=== PATIENT | male | born 1950 | race Caucasian/White ===

== ENCOUNTER 2024-07-17 17:16 | Observation (INO) | payer MEDICARE, SELFPAY ==
--- NOTE | ~2024-07-17 | XR_ITS ---
EXAM: XR wrist LT min 3V DATE: 07/17/2024 18:39 HISTORY: left wrist pain, swelling/NO TRAUMA . COMPARISON: None available. FINDINGS: Decreased mineralization. No fracture or dislocation. No lytic or blastic lesion. Scattere d degenerative changes, severe at the radiocarpal articulation, with findings likely representing SLA C wrist. No erosion or periosteal change. Linear radiopaque foreign body in the soft tissues adjacent to the first interphalangeal joint. Marked soft tissue swelling about the wrist. IMPRESSION: No acute osseous finding the left wrist. 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 Marked wrist soft tissue swelling. Radiopaque foreign body adjacent t o the interphalangeal joint of the thumb. Reviewed, dictated and finalized at location K. IMPRESSION: No acute osseous finding the left wrist. Severe degenerative change s of the radial carpal joint and proximal carpal row. Marked wrist soft tissue swelling. Radiopaque foreign body adjacent to the interphalangeal joint of the thumb.
--- OUTSIDE RECORDS SUMMARY | 2024-07-17 17:57 | XMS_ITS | Continuity of Care Document ---
Author Organization [facility] Address [address] [place] [address] Phone Care Team Providers Care Sales Representative Supervisor Name Role Phone Zaheer SANTILLAN Oscar Unavailable Unavailable Allergies, Adverse Reactions, Alerts Substance Reaction Status Criticality No Known Allergies Active No Inform ation Medications Medication Instructions Dosage Effective Dates (start - stop) Status Comments metformin 500 mg tablet take 1 tablet by oral route 2 times every day with morning and evening meals 500 MG - Active atorvastatin 20 mg tablet take 1 tablet by oral route every day 20 MG - Active hydrochlorothiazide 25 mg tablet take 1 tablet by oral route every day 25 MG - Active losartan 50 mg tablet - Active AMLODIPINE BESYLATE (unknown strength) Not Available - Active bisoprolol-hydrochloroth iazide 10 mg-6.25 mg Tab - Active Procedures Procedure Date OFFICE/OUTPATIENT VISIT EST DRAIN/INJECT JOINT/BURSA Drugs unclassified injection Drugs unclassified injection Betamethasone acet&sod phosp DRAIN/INJECT JOINT/BURSA Betamethasone acet&sod phosp OFFICE/OUTPATIENT VISIT EST OFFICE/OUTPATIENT VISIT EST RADEX WRST COMPL MINIMUM 3 VIEWS 2021 Wrist Long and Short Splint Betamethasone acet&sod phosp Drugs unclassified injection DRAIN/INJECT JOINT/BURSA Betamethasone acet&sod phosp Drugs unclassified injection DRAIN/INJECT JOINT/BURSA OFFICE/OUTPATIENT VISIT NEW CHERELLE ACUÑA 3 VIEWS OFFICE/OUTPATIENT VISIT EST OFFICE/OUTPATIENT VISIT EST MU Reporting OFFICE/OUTPATIENT VISIT EST MU Reporting OFFICE/OUTPATIENT VISIT EST MU Reporting POSTOP FOLLOW-UP VISIT MU Reporting POSTOP FOLLOW-UP VISIT MU Reporting Advance Directives Directive Yes / No Effective Date File Name No Information Encounters Encounter Description Practice Location Reason(s) For Visit Diagnoses Date Provider Providers Copied on Encounter [facility], [address], [place], [address], tel:[phone] [facility] No Information 2 Zaheer Moore. [address], [place], [place], [id number]. tel:[phone] OFFICE/OUTPA TIENT VISIT EST [facility], [address], [place], [address], [place] tel:[phone] [facility] Osteoarthritis of both wrists, unspecified osteoarthritis type 2 Zaheer Moore. [address], [place], [place], [address]. tel:[phone] Referring Provider: Guero Marvin, [address] [place] [address], [address]. tel:[phone] OFFICE/OUTPA TIENT VISIT EST [facility], [address], [place], [address], [place] tel:[phone] [facility] Osteoarthritis of both wrists, unspecified osteoarthritis type 2 Zaheer Moore. [address], [place], [place], [id number]. tel:[phone] Referring Provider: Guero Marvin, [address] [place] [address], [address]. tel:[phone] OFFICE/OUTPA TIENT VISIT EST [facility], [address], [place], [address], [place] tel:[phone] [facility] Osteoarthritis of both wrists, unspecified osteoarthritis type 2 Zaheer Moore. [address] [address], [place], [place], [address]. tel:[phone] Referring Provider: Guero Marvin, [address] [place] [address], [address]. tel:[phone] OFFICE/OUTPA TIENT VISIT NEW [facility], [address] [facility] [address], [place], [address], [place] tel:[phone] [facility] Pain in right wristBody mass index [BMI] 27.0-27.9, adultOsteoarth ritis of both wrists, unspecified osteoarthritis type Jun- 2 Zaheer Moore. [address] [facility] [address], [place], [place], [address]. tel:[phone] Referring Provider: Guero Marvin, [address] [place] [address], [address]. tel:[phone] OFFICE/OUTPA TIENT VISIT EST [facility], [address] [address], [place], [address], [place] tel:[phone] [facility] Left anterior knee painStrain of right quadriceps, initial encounterBody mass index (BMI) 30.0-30.9, adult Apr- 2 6 Krmichaelhauser Saul. [address] [facility], [place], [place], [id number]. tel:[phone] OFFICE/OUTPA TIENT VISIT EST [facility], [address] [address], [place], [address], [place] tel:[phone] [facility] Knee joint replacement 0 4 Krmaryangshauser Saul. [address] [facility], [place], [place], [address]. tel:[phone] Referring Provider: Guero Marvin, [address] [place] [address], [address]. tel:[phone] OFFICE/OUTPA TIENT VISIT EST [facility], [address] [facility], [place], [address], [place] tel:[phone] [facility] Knee joint replacement 3 Zachary Hughes. [address] [address] [facility], [place], [place], [id number]. tel:[phone] Referring Provider: Guero Marvin, [address] [place] [address], [address]. tel:[phone] OFFICE/OUTPA TIENT VISIT EST [facility], [address] [facility] [address] [place] [address], [address], [place] tel:[phone] [facility] Knee joint replacement 3 Zachary Hughes. [address] [place], [place], [id number]. tel:[phone] Referring Provider: Guero Marvin, [address] [place] [address], [address]. tel:[phone] [facility], [address] [address] [facility] [address] [place] [address], [address], [place] tel:[phone] [facility] Knee joint replacement 2 Zachary Hughes. [address] [place], [place], [address]. tel:[phone] Referring Provider: Guero Marvin, [address] [place] [address], [address]. tel:[phone] [facility], [address], [address], [place] tel:[phone] [facility] replacement 2 Boxdorfer Jemma. [address] [facility] [address] [place] [address], [id number]. tel:[phone] Referring Provider: Guero Marvin, [address] [place] [address], [address]. tel:[phone] [facility], [address], [address], [place] tel:[phone] [facility] Osteoarthrosis , unspecified whether generalized or localized, involving lower leg Sep-1 0-201 2 Zachary Hughes. [address] , [place], [place], [address]. tel:[phone] Referring Provider: Guero Marvin, [address] [place] [address], [address]. tel:[phone] [facility], [address] [facility], [place], [address], tel:[phone] [facility] Osteoarthrosis , unspecified whether generalized or localized, involving lower leg Alphonse-2 8201 2 Zachary Hughes. [address] , [place], [place], [address]. tel:[phone] Referring Provider: Guero Marvin, [address] [place] [address], [address]. tel:[phone] Family History Family Member Type Diagnosis Age At Onset Father Problem (finding) Heart disease Mother Problem (finding) Arthritis Immunizations Vaccine Date Status Comments Pneumo (2 yrs or older)(PPV) administered Source: Other Provider Payers Payer name Insurance type Covered green party ID Authoriza tion(s) Medicare E2 OT [id number] [employer] OT [id number] Social History Type Description Quantity Date Captured Comments Alcohol Use Details Unknown Caffeine Use Details Unknown Tobacco Use Status No Information Smoking Status No Information Sex Male Chief Complaint And Reason For Visit No Information Reason For Referral Reason For Referral No Information Plan Of Treatment Date Type Action Status Referral Ordered: RADEX WRST COMPL MINIMUM 3 VIEWS RT wrist ordered Referral Ordered: RADEX KNE 3 VIEWS LT ordered Referral Ordered: RADEX KNE 3 VIEWS RT ordered Referral Ordered: RADEX KNE 3 VIEWS Bilateral ordered History Of Present Illness Encounter Date Complaint History Of Prese nt Illness No Information Functional Status Date Functional Assessmen t No Information Instructions Date Instruction Additional Infor mation Giving encouragement to exercise Related to Body mass index [BMI] 27.0-27.9, adult Giving encouragement to exercise Related to Body mass index (BMI) 30.0-30.9, adult Home exercise program. Related t o Knee joint replacement Weight bearing status as tom collins Related to Knee joint replacement Reviewed medications Activity as tolerated Activity as tolerated Assessments Type Assessment Date No Information Patient Care Teams Name Effective Dates (start - stop) Status Members No Information
--- OUTSIDE RECORDS SUMMARY | 2024-07-17 17:57 | XMS_ITS | Clinical Summary ---
Author Organization [facility] Address [address] [place] [address] Phone Care Team Providers Care Dial Screw Assembler Name Role Phone Unavailable Primary Care Provider Unavailabl e Allergies No known active allergies Medications metFORMIN (GLUCOPHAGE) 500 mg tablet Take 500 mg by mouth 2 times daily. 6 12/15/2018 Active amLODIPine (NORVASC) 2.5 mg tablet Take 1 Tablet (2.5 mg) by mouth daily. 30 Tablet 03/06/2019 Active aspirin (ECOTRIN EC) 81 mg Tablet, Delayed Release (E.C.) Take 1 Tablet (81 mg) by mouth daily. 30 Tablet 1 03/14/2019 Active atorvastatin (LIPITOR) 10 mg tablet Take 1 Tablet (10 mg) by mouth daily with supper. 30 Tablet 1 03/06/2019 Active oxyCODONE-aceta minophen (PERCOCET) 5-325 mg tabletIndicatio ns:Wrist arthritis Take 1 Tablet by mouth every 4 hours as needed for Pain. Max Daily Amount: 6 Tablets 12 Tablet 06/20/2021 8:14 AM CDT 06/20/2021 Active Active Problems Problem Noted Date Diagnosed Date Right sided weakness 03/05/2019 Slurred speech 03/05/2019 Type 2 diabetes mellitus, wi thout long-term current use of insulin 03/05/2019 Benign essential HTN 03/05/2019 Immunizations Immunization Administration Dates Next Due (ADACEL/BOOSTRIX)(10 YR UP) TDAP VACCINE, 0.5ML, IM 06/20/2021 Family History Medical History Relation Name Comments Heart Disease Father Healthy Mother Relation Name Status Comments Father Mother Alive Social History Tobacco Use Types Packs/Day Years Used Date Smoking Tobacco: Former Cigarettes 2 20 1 05/06/1958 - 03/05/1979 Smokeless Tobacco: Never Alcohol Use Standard Drinks/Week Comments Yes 0 (1 standard drink = 0.6 oz pur e alcohol) Sex and Gender Information Value Date Recorded Sex Assigned at Not on file Legal Sex Male 10:38 PM CDT Gender Identity Not on file Sexual Orientation Not on file Last Filed Vital Signs Vital Sign Reading Time Taken Comments Blood Pressure 148/51 06/20/2021 5:40 AM CDT Pulse 58 06/20/2021 5:40 AM CDT Temperature 36.8 C (98.3 F) 06/20/2021 4:40 AM CDT Respiratory Rate 13 06/20/2021 5:40 AM CDT Oxygen Saturation 92% 06/20/2021 5:40 AM CDT Inhaled Oxygen Concentration - - Weight 81.6 kg (180 lb) 06/20/2021 4:40 AM CDT Height 170.2 cm (5' 7 ) 06/20/2021 4:40 AM CDT Body Mass Index 28.19 06/20/2021 4:40 AM CDT Plan of Treatment Health Maintenance Due Date Last Done Comments DIABETES ANNUAL FOOT EXAM 01/02/1968 DIABETES MICROALBUMIN ANNUAL SCREEN 01/02/1968 COLORECTAL SCREENING 1995 Colorectal Cancer Screening 1995 FIT-DNA Q 3 years 1995 FIT/FOBT Q 1 year 1995 Flex Sig/CT Colonography Q 5 years 1995 RSV VACCINE (60+ or ) (1 - Risk 60-74 years 1-dose series) 2010 ZOSTER VACCINE (2 of 3) 02/12/2015 12/18/2014, 12/17 LDL CHOLESTEROL ANNUAL 03/05/2020 03/05/2019 INFLUENZA VACCINE (#1) 2023 3, 01/14/2022, 11/28/2021, Additional history exists COVID-19 Vaccine (3 - 2023-2 5 season) 2023 06/21/2020, 05/31/2020 DIABETES ANNUAL RETINAL EXAM 06/21/2024 06/22/2023 DIABETES HBA1C Q 6 MONTHS 12/14/20242024, 12/14/2023, 06/12/2023, Additional history exists DTAP/TDAP/TD VACCINES (3 - T d or Tdap) 06/21/2031 06/20/2021, 04/15/2017 PNEUMOCOCCAL VACCINE 50+ YEARS Completed 04/22/2019 , 12/15/2016 Procedures Procedure Name Priority Date/Time Associated Diagnosis Comments LIPID PANEL Routine 03/05/2019 5:49 AM CUSTOMS MANAGER HEMOGLOBIN A1C Stat 03/05/2019 5:49 AM CUSTOMS MANAGER from Last 3 Months or Most Recently Relevant to Health Maintenance Results * HEMOGLOBIN A1C (03/05/2019 5:49 AM CUSTOMS MANAGER) HEMOGLOBIN A1C 5.6 <=5.6 % 03/05/2019 9:26 AM [facility] [place] [employer] [facility] EST. AVG GLUCOSE, A1C 114 mg/dL 03/05/2019 9:26 AM [facility] [place] [employer] [facility] Blood Venipuncture / Unknown 03/05/2019 5:49 AM CUSTOMS MANAGER 03/05/2019 6:24 AM CUSTOMS MANAGER Narrative [facility] [place] [employer] [facility] - 03/05/2019 9:26 AM CUSTOMS MANAGER HGB A1C INTERPRETATION NORMAL: <5.7% PRE-DIABETES: 5.7 - 6.4% DIABETES: 6.5% OR GREATER Vaibhav MEDINA CHEMISTRY ORDERABLES Final Result [facility] CLIA# [id number] [place] [address] * (ABNORMAL) LIPID PANEL (03/05/2019 5:49 AM CUSTOMS MANAGER) CHOLESTEROL 160 <200 mg/dL 03/05/2019 10:43 PM [facility] [place] [employer] [facility] TRIGLYCERIDE 149 <150 mg/dL 03/05/2019 10:43 PM [facility] [place] [employer] [facility] HDL 42(L) >57 mg/dL 03/05/2019 10:43 PM [facility] [place] [employer] [facility] LDL CALCULATED 88 <100 mg/dL 03/05/2019 10:43 PM CUSTOMS MANAGER [facility] [place] [employer] [facility] NON-HDL CHOLESTEROL 118 <130 mg/dL 03/05/2019 10:43 PM CUSTOMS MANAGER [facility] Blood Venipuncture / Unknown 03/05/2019 5:49 AM CUSTOMS MANAGER 03/05/2019 6:05 AM CUSTOMS MANAGER Narrative [facility] - 03/05/2019 10:43 PM CUSTOMS MANAGER TOTAL CHOLESTEROL mg/dL Desirable <200 Borderline high 200-239 High >=240 TRIGLYCERIDES mg/dL Normal <150 Borderline high 150-199 High 200-499 Very high >=500 HDL CHOLESTEROL mg/dL Low <40 Normal 40-59 Desirable >=60 NON HDL CHOLESTEROL mg/dL Optimal <130 Near Optimal 130-159 Borderline High 160-189 Very High >=190 Calculated LDL mg/dL Optimal <100 Near Optimal 100-129 Borderline High 130-159 High 160-189 Very High >=190 ATPIII Guidelines Reference Ranges for Lipid Panels (NCEP/AMA) Vaibhav MEDINA CHEMISTRY ORDERABLES Final Result [facility] [place] [employer] [facility] CLIA# [id number] [place] [address] from Last 3 Months or Most Recently Relevant to Health Maintenance Insurance MEDICARE PART A AND B RX [facility] Medicare Part D Advance Directives For more information, please contact: [phone] * Full Code (Latest Code Status on File) Date Activated Date Inactivated Comments 03/05/2019 8:36 AM 03/06/2019 5:50 PM
--- OUTSIDE RECORDS SUMMARY | 2024-07-17 17:57 | XMS_ITS | Clinical Summary ---
Author Organization [facility] Address [address] [place] [address] Care Team Providers Care Refinery Operator Name Role Phone Unavailable Primary Care Provider Unavailabl e Social History Tobacco Use Types Packs/Day Years Used Date Smoking Tobacco: Never Assessed Sex and Gender Information Value Date Recorded Sex Assigned at Not on file Legal Sex Male 7:06 PM CDT Gender Identity Not on file Sexual Orientation Not on file Plan of Treatment Health Maintenance Due Date Last Done Comments Colorectal Cancer Screening Colonoscopy (10 Years) 1950 Hepatitis C 01/02/1968 DTaP, Tdap and Td Vaccines ( 1 - Tdap) 1969 Pneumococcal Vaccine: 50+ Ye ars (1 of 1 - PCV) 01/02/2000 Zoster Vaccines (1 of 2) 01/02/2000 COVID-19 Vaccine ( - 2023-2 5 season) 2023 RSV Immunization or 60+ Years (1 - 1-dose 75+ series) 2025 Meningococcal B Vaccine Aged Out No l onger eligible based on patient's age to complete this topic Meningococcal Vaccine Aged Out No benjie carmen eligible based on patient's age to complete this topic RSV Immunizations Under 20 Months Aged Out No longer eligible based on patient's age to complete this topic
--- OUTSIDE RECORDS SUMMARY | 2024-07-17 17:57 | XMS_ITS | Continuity of Care Document ---
Author Organization [facility] Address [address] [place] [address] Phone Care Team Providers Care Senior Linux Unix Administrator Name Role Phone Trudy Lewis Unavailable Unavailable Allergies, Adverse Reactions, Alerts Substance Reaction Status Criticality No Known Allergies Active No Inform ation Medications Medication Instructions Dosage Effective Dates (start - stop) Status Comments amoxicillin 500 mg tablet take 4 tablets by oral route 2 hours prior to all dental visits - Active oxycodone-acetaminophen 5 mg-325 mg tablet take 1-2 tablet by oral route every 4 hours as needed for postop pain control - Active meloxicam 15 mg tablet take 1 tablet by oral route every day 15 MG - Active ondansetron 4 mg disintegrating tablet take 1 tablet by oral route every 6 hours as needed for post op nausea control, place on tongue, let dissolve, then swallow - Active Aspirin Low Dose 81 mg tablet,delayed release take 1 tablet by oral route every day 81 MG - Active atorvastatin 10 mg tablet take 1 tablet by oral route every day 10 MG - Active hydrochlorothiazide 12.5 mg capsule take 1 capsule by oral route every day 12.5 MG - Active multivitamin capsule - Active Cinnamon 500 mg capsule - Active metformin 500 mg tablet take 1 tablet by oral route 2 times every day with morning and evening meals 500 MG - Active amlodipine 2.5 mg tablet - Activ e Procedures Procedure Date BMI Documented Above Normal Limit F/U Pl an Doc Asp/inject intermed joint/bursa w/o US g uidance Office/outpatient visit,new, mod 2024 Aspirate/Inj Ganglion Cyst Global/Postop followup visit Global/Postop followup visit Total Knee Replacement Patients with documented shared decision -making Patients who are evaluated for venous th romboembol Total Knee Replacement Office/outpatient visit,est, mod 2022 Office/outpatient visit,new, mod 2018 Wrist Lacer Advance Directives Directive Yes / No Effective Date File Name No Information Encounters Encounter Description Practice Location Reason(s) For Visit Diagnoses Date Provider Providers Copied on Encounter Office/outpa tient visit,new, mod [facility], [address], [id number], [place] tel:[phone] [facility] Right wrist (chief complaint) Ganglion, right wristOther specified rheumatoid arthritis, right handOther specified rheumatoid arthritis, right wrist 5 Tono Yates. [address] [address], [place], [address], [place]. tel:[phone] Referring Provider: Guero Marvin, [address] [place] [address], [id number]. tel:[phone] [facility], [address], [id number], [place] tel:[phone] [facility] Pain in right hand 5 [facility]. [address] [address], [place], [place], [id number], [place]. tel:[phone] [facility], [address], [id number], [place] tel:[phone] [facility] Left Knee (chief complaint) Pain in left kneePresence of left artificial knee joint 3 Heather Smith. [address] [address], [place], [place], [id number], [place]. tel:[phone] Referring Provider: Guero Marvin, [address], [address]. tel:[phone] [facility], [address] [address], [place], [place], [id number], [place] tel:[phone] [facility] Professional [facility] Left knee (chief complaint) Pain in left kneePresence of left artificial knee joint 3 Heather Smith. [address] [facility] [address], [place], [place], [id number], [place]. tel:[phone] Referring Provider: Guero Marvin, [address], [address]. tel:[phone] [facility], [address] [address], [place], [place], [id number], [place] tel:[phone] [facility] Unilateral primary osteoarthriti s, left knee Sep- 3 Nereida skinner. [address] [facility], [address] [address], [place], [place], [id number], [place]. tel:[phone] [facility], [address] [address], [place], [place], [id number], [place] tel:[phone] [facility] No Information 3 Nereida skinner. [address] [facility], [address] [address], [place], [place], [id number], [place]. tel:[phone] Referring Provider: Higinio Marvin, [address] [facility] [address] [facility], [place], [address]. tel:[phone] [facility], [address] [address], [place], [place], [id number], [place] tel:[phone] [facility] No Information 3 Heather Smith. [address] [facility], [address] [address], [place], [place], [id number], [place]. tel:[phone] Referring Provider: Higinio Marvin, [address] [address], [place], [address]. tel:[phone] [facility], [address] [place] [address], [id number], tel:[phone] [facility] No Information 3 Nereida espinal [address] [place] [address], [address], [id number], [place]. tel:[phone] Office/outpa tient visit,[facility], [address] [place] [address], [id number], [place] tel:[phone] [facility] [employer] left knee (chief complaint) Unilateral primary osteoarthriti s, left knee 3 Nereida skinner. [address] [place] [address], [id number], [place]. tel:[phone] Office/outpa tient visit,[facility], [address], [id number], [place] tel:[phone] [facility] right wrist (chief complaint) Pain in left wristPrimary osteoarthriti s, right wrist Feb-0 201 9 Tabitha Cuba. [address] [place] [address], [id number], [place]. tel:[phone] Referring Provider: Bereket Skinner, [address] [place] [address], [place], [address]. tel:[phone] Family History Family Member Type Diagnosis Age At Onset Father Problem (finding) Heart Disease Problem (finding) Family history of hyper tension Immunizations Vaccine Date Status Comments influenza, injectable, quadrivalent, (3 years or older) administered Note: per patient ; Source: Source Unspecified Payers Payer name Insurance type Covered alliance party ID Authoriza tion(s) [place] N[place] Part [place] MB [id number] [employer] [id number] Social History Type Description Quantity Date Captured Comments Alcohol Use Details Unknown Caffeine Use Details Unknown Tobacco Use Status No Information Smoking Status No Information Non-Smoking Tobacco Use Details : No Details Available : No Details Available Sex Male Vital Signs Date / Time: Height Weight BMI Pulse Rate Blood Pressure Temperature Respiratory Rate Body Surface Area Head Circumference Head Circ. Percentile Wt./Alexander. Percentile BMI percentile Pulse Ox Inhaled Ox 8:57 AM 67.00 in 84.822 kg (187.00 lbs) 29.2 9 kg/m eter (2) Chief Complaint And Reason For Visit From encounter dated '07/11/2024 08:30'. Right wrist (chief complaint). Description: Garrison presents today July 11, 2024. He is here for evaluation of a right wrist cyst and right wrist stiffness. Garrison describes the cyst has been present for about 1 year. He also reports right wrist stiffness and notes he has rheumatoid arthritis. Garrison notes that the right wrist cyst is mildly painful, and it sometimes interferes with his sporting elsi shooting. He reports the cyst has been similar in size since its first appearance. He denies any numbness or tingling. He had x-rays taken today July 11, 2024 at the [facility] facility in [place] which were interpreted as severe inflammatory arthritic changes. There is severe obliteration of the radial styloid and scaphoid articulation. The lunate is displaced volarly as the capitate now articulateswith the radius. The proximal row is volarly displaced. There is also evidence of inflammatory arthritis in the 2nd and 3rd metacarpophalangeal joints on the right hand. He is here today for further e valuation of the right wrist cyst and right wrist stiffness. Reason For Referral Reason For Referral No Information Plan Of Treatment Date Type Action Status Referral Ordered: X-ray exam hand, 3+ views RT ordered Referral Ordered: X-ray exam wrist, complete, 3+ views RT ordered History Of Present Illness Encounter Date Complaint History Of Prese nt Illness Right priya Ji presents t corky July 11, 2024. He is here for evaluation of a right wrist cyst and right wrist stiffness. Garrison describes the cyst has been present for about 1 year. He also reports right wrist stiffness and notes he has rheumatoid arthritis. Garrison notes that the right wrist cyst is mildly painful, and it sometimes interferes with his sporting elsi shooting. He reports the cyst has been similar in size since its first appearance. He denies any numbness or tingling. He had x-rays taken today July 11, 2024 at the [facility] facility in [place] which were interpreted as severe inflammatory arthritic changes. There is severe obliteration of the radial styloid and scaphoid articulation. The lunate is displaced volarly as the capitate now articulates with the radius. The proximal row is volarly displaced. There is also evidence of inflammatory arthritis in the 2nd and 3rd metacarpophalangeal joints on the right hand. He is here today for further evaluation of the right wrist cyst and right wrist stiffness. Varinder Knee Garrison presents t o the office today for ongoing post operative evaluation of his left total knee arthroplasty, date of surgery 12/16/2022. Denies injury, trauma or fall since surgical intervention. Denies fever, chills, generalized feelings of illness or malaise. He has completed physical therapy, walks three miles every morning and is working on active strengthening exercises. He has some difficulty with getting up and down off of the floor, but this is getting better with time. Endorses mild diffuse intermittent left knee pain with getting up and down that is managed with the use of acetaminophen as needed. He has no complaints at this time. He is ambulating without assistive device. Varinder knee Garrison presents t o the office today for initial post operative evaluation of his left total knee arthroplasty, date of surgery 12/16/2022. Denies injury, trauma or fall since surgical intervention. Denies fever, chills, generalized feelings of illness or malaise. Indicates compliance with the use of aspirin 81mg twice per day for DVT prophylaxis. He is participating in physical therapy, and feels that it is going well. He has initiated ambulating for fitness and ambulates approximately 1 mile every morning. He endorses achy intermittent pain, diffusely located throughout the left knee that is worsened at night and with overexertion. He is utilizing acetaminophen meloxicam and ice for pain control. He is ambulating without assistive device. left knee Garrison is a 72 ye ar-old male who presents to the office for evaluation of left knee pain. He is 5 foot 7, 190 pounds. He denies any trauma. Pain in the left knee is in 6-9 out of 10 it is throbbing. Pain is mostly medial. He has grinding limping popping and stiffness noted. Pain is worse with climbing stairs descending stairs and walking pain is better with bracing heat ice and massage. He has previously had injections from his primary care physician. He has utilized Voltaren gel. He does use a small knee brace. He has a history of rheumatoid disease, and he does take some oral anti-inflammatories. He has some changes in his hands and wrist. He has had a history of a stroke hypertension and kidney stones and has had a right total knee arthroplasty with Dr. Rashad Reyes who is now retired he is a former smoker.He does use metformin low-dose aspirin atorvastatin amlodipine hydrochlorothiazide vitamins and cinnamonRadiographs are reviewed from [facility]. AP, lateral, merchant, Brown views of the left knee demonstrate end-stage osteoarthritis of the medial compartment with severe varus alignment. There are osteophytes present on the medial femur and tibia. There is sclerosis of the subchondral bone of the medial tibia. There is moderate osteoarthritis of the patellofemoral joint. There is a well-positioned stable cemented right total knee arthroplasty.Impression end-stage osteoarthritis of the left knee with varus alignmentkELLGREN-ALLAN IV arthritis right wrist synovial cyst Functional Status Date Functional Assessmen t No Information Instructions Date Instruction Additional Infor ailyn Garrison will continue to maintain an adequate level of physical activity, continue a walking program and strengthening exercises. He will use rest, ice, compression, elevation, and over the counter topical and oral NSAIDS and analgesic medications for pain and inflammation control as needed. He will use an antibiotic prior to all dental visits for the next 2 years, and a prescription for amoxicillin 500mg tablets by mouth, 4 tablets taken 2 hours prior to all dental visits, for prophylactic treatment was sent to his pharmacy at the conclusion of the office visit. He demonstrates appropriate understanding of the diagnosis and the plan of care at this time and will follow up with the office in one year Related to Presence of left artificial knee joint Garrison will continue to ambulate for fitness, and initiate a strengthening regimen. Medication management was reviewed in depth. He will:Continue the use of aspirin 81 mg twice per day for DVT prophylaxis until 6 weeks post op. Continue in physical therapy, and maintain an adequate level of physical activity.Use compression stockings for edema control in the lower limb as needed. Will not submerge the surgical incision in standing water, infection risk reviewed in depth.Continue pain control with outlined measures, rest, ice, elevation, over the counter analgesics, prescription analgesics and NSAIDs.Remain compliant with the use of antibiotics prior to any dental procedures for the next 2 years, avoiding dental care until 3-6 months post op unless emergent. All questions were answered and concerns addresses. Garrison demonstrates appropriate understanding of the diagnosis and the plan of care at this time and will follow up with our office in 8 weeks. Dictation completed with [employer] software, grammatical variances and spelling errors may inadvertently occur. Related to Presence of left artificial knee joint After discussing the risks benefits and alternatives to treatment. Risks include DVT, PE, infection, persistent pain, swelling and stiffness, damage to nerves and arteries, Additional, medical complications related to surgery including constipation, pneumonia, urinary retention, and other issues. The patient understands all this and wishes to proceed with knee arthroplasty. We discussed the hospital course, the postoperative rehabilitation protocol including aggressive outpatient physical therapy. We discussed that if physical therapy is not optimized the patient could develop stiffness of the knee leading to suboptimal outcomes. We also discussed DVT prophylaxis this includes aspirin and PAS active care compression devices unless the patient specifically has an increased risk of DVT. Appropriate preoperative radiographs were obtained for templating purposes. All questions were answered wrist and benefits explained the patient wishes to proceed with total knee arthroplasty. [facility] surgery Center outpatient total knee arthroplasty Related to Unilateral primary osteoarthritis, left knee Assessments Type Assessment Date assessment Ganglion, right wrist assessment Other specified rheumatoid arthr itis, right hand assessment Other specified rheumatoid arthr itis, right wrist impression We discussed treatme nt options for the right wrist volar carpal ganglion cyst. We decided to aspirate the ganglion cyst in the office today. I was able to aspirate thick clear/yellow fluid, the contents consistent with that of a ganglion cyst. I was able to completely flatten the cyst. Garrison may follow-up in the office as needed if the cyst recurs or if he has persistent pain. Garrison may also call with any questions or concerns. Patient Care Teams Name Effective Dates (start - stop) Status Members No Information
--- OUTSIDE RECORDS SUMMARY | 2024-07-17 17:57 | XMS_ITS | Clinical Summary ---
Author Organization [facility] Address [address] [place] [address] Care Team Providers Care Jacquard Loom Weaver Name Role Phone Guero Wei DO Primary Care Provider [phone] Guero Wei DO Unavailable [phone] Source Comments [facility],non-owned Affiliates and Associated Physician Practices is amultiple site organization consisting of ambulatory clinics and hospital sitesin [place], [place], [place] and [place]. This disclosure is being madepursuant to the Care Everywhere program and may not contain all information available regarding this patient. Last updated 17.[facility] Allergies No known active allergies Medications * Be aware that medications may not be up to date on this document. Alwaysverify current medications with the patient. aspirin EC (ECOTRIN) 81 MG tablet Take 1 (one) tablet by mouth once daily Active Calcium-Phosphorus- Vitamin D (CALCIUM/VITAMIN D3/ADULT GUMMY PO) A ctive atorvastatin (Lipitor) 20 MG tabletIndications:M ixed hyperlipidemia TAKE 1 TABLET BY MOUTH EVERY DAY 90 tablet 4 4 Active metFORMIN (Glucophage) 500 MG tabletIndications:T ype 2 diabetes mellitus without complication, without long-term current use of insulin (HCC) TAKE 1 TABLET BY MOUTH TWICE A DAY WITH MORNING AND EVENING MEAL 180 tablet 4 4 Active hydroCHLOROthiazide (Hydrodiuril) 25 MG tabletIndications:E ssential hypertension TAKE 1 TABLET BY MOUTH EVERY DAY 90 tablet 4 4 Active amLODIPine (Norvasc) 2.5 MG tabletIndications:E ssential hypertension TAKE 1 TABLET BY MOUTH EVERY DAY 90 tablet 4 4 Active Active Problems Problem Noted Date Diagnosed Date History of arthroplasty of left knee 01/12/2023 Osteoarthritis of left knee 11/12/2022 Overview (11/12/2022): Scheduled for TKR Primary osteoarthritis of both knees 01/09/2022 Overweight (BMI 25.0-29.9) 06/12/2021 Transient ischemic attack 03/17/2019 Essential hypertension 03/05/2019 Type 2 diabetes mellitus wit hout complication, without long-term current use of insulin 03/05/2019 Overview (07/02/2021): Guero Wei DO (Physician) Family Medicine Encounter Date: 06/12/2021 History of total knee arthroplasty 01/16/2014 Resolved Problems Problem Noted Date Diagnosed Date Resolved Date Acute sciatica 06/12/2021 06/12/2021 Somatic dysfunction of sacroiliac joint 06/12/2021 06/12/2021 Right sided weakness 03/05/2019 022 Slurred speech 03/05/2019 06/12/2021 Encounters Date Type Department Care Team Description 07/06/2024 10:55 AM CDT Ancillary Procedure [facility] - Radiology [address] [id number] Nayan Llanes MD Right hand pain 06/30/2024 Patient Outreach [facility] - Care Coordination [address] [place] [address] Dorothea Schwab Outreach Preventive Care 06/13/2024 7:15 AM CDT Office Visit [facility] - Family Medicine [address] [facility] [address] [place] [address] Guero Wei DO Type 2 diabetes mellitus without complication, without long-term current use of insulin (Primary Dx); Essential hypertension; Ganglion cyst; Prostate cancer screening; Medicare annual wellness visit, subsequent from Last 3 Months Immunizations Immunization Administration Dates Next Due Covid Moderna primary monova lent 12+ yr 0.5mL 06/21/2020,05/31/2020 FLU VACCINE QUAD IIV4 SPLIT 0.25 ML IM 11/28/2021,01/04/2020,12/15/2016 INFLUENZA VACCINE 12/17/2014,11/28/2014,01/26/20 12 INFLUENZA VACCINE, ADJUVANTE D, QUADR. (FLUAD QUADRIVALENT; 65Y+) (AIIV4) 01/08/2023,01/14/2022,01/03/2020 INFLUENZA VACCINE, HIGH-DOSE , QUADR. (FLUZONE HIGH-DOSE QUADRIVALENT; 65Y+), 0.7 ML (HD-IIV4) 12/25/2020,01/03/2019,12/24/2017,2016,12/11/2015 INFLUENZA VACCINE, HIGH-DOSE , TRIV. (FLUZONE HIGH-DOSE TRIVALENT; 65Y+) (HD-IIV3) 01/03/2019,12/24/2017,12/15/2016,2015 INFLUENZA VACCINE, QUADR. (F LUZONE; FLULAVAL; FLUARIX; AFLURIA QUADRIVALENT; 6MO+), 0.5 ML (IIV4) 01/19/2013 INFLUENZA VACCINE, TRIV. (FL UZONE; FLULAVAL; FLUARIX; AFLURIA TRIVALENT; 6MO+), 0.5 ML (IIV3) 12/17/2014,01/26/2012 PNEUMOCOCCAL PPSV23 12/15/2016 Pneumococcal Pcv13 Conj 04/22/2019 TDAP (7yrs+) 06/20/2021,04/15/2017 ZOSTER VACCINE, LIVE 12/17/2014 Family History Medical History Relation Name Comments CAD (Coronary Artery Disease) Father None Known Mother Relation Name Status Comments Father Mother Alive Social History Tobacco Use Types Packs/Day Years Used Date Smoking Tobacco: Former Smokeless Tobacco: Never Tobacco Cessation:Counseling Given: Not Answered Alcohol Use Standard Drinks/Week Comments Yes 4 (1 standard drink = 0.6 oz pur e alcohol) PHQ-2 Answer Date Recorded Patient Health Questionnaire-2 Score 0 06/13/2024 Sex and Gender Information Value Date Recorded Sex Assigned at Not on file Legal Sex Male 2:29 PM [employer] Gender Identity Not on file Sexual Orientation Not on file Last Filed Vital Signs Vital Sign Reading Time Taken Comments Blood Pressure 143/87 06/13/2024 7:16 AM CDT Pulse 75 06/13/2024 7:16 AM CDT Temperature 36.7 C (98 F) 06/09/2022 7:16 AM CDT Respiratory Rate 18 06/13/2024 7:16 AM CDT Oxygen Saturation 97% 06/13/2024 7:16 AM CDT Inhaled Oxygen Concentration - - Weight 86.2 kg (190 lb) 06/13/2024 7:16 AM CDT Height 170.2 cm (5' 7 ) 06/13/2024 7:16 AM CDT Body Mass Index 29.76 06/13/2024 7:16 AM CDT Plan of Treatment Upcoming Encounters Date Type Department Care Team (Late st Contact Info) Description 12/14/2024 7:15 AM CDT Office Visit [facility] - Family Medicine [address] [facility] [address] [place] [phone] Guero Wei DO [address] [facility] [address] [place] [address] Health Maintenance Due Date Last Done Comments COLOGUARD (AGES 45-75) - COLON CA SCREENING [address] COLONOGRAPHY - COLON CA SCREENING 1950 FIT - COLON CA SCREENING 1950 FLEX SIG - COLON CA SCREENING 1950 HEPATITIS C SCREENING 12/28/1967 AAA SCREENING 2015 ZOSTER VACCINE (2 of 3) 02/11/2015 12/17/2014 DIABETES-FOOT EXAM WITH MONOFILAMENT 06/12/2021 COVID-19 VACCINE ( season) 2023 02/02/2023, 03/04/2022, 01/31/2021, Additional history exists INFLUENZA VACCINE (Season Ended) 2024 01/08/2023, 01/14/2022, 11/28/2021, Additional history exists DIABETES-HGB A1C 12/14/2024 06/13/2024, , 06/12/2023, Additional history exists Respiratory Syncytial Virus (RSV) Vaccine Pt: or over 60 yrs (1 - 1-dose 75+ series) 2025 DIABETES - URINE PROTEIN SCREENING 06/13/2025 06/13/2024, 12/14/2023, 06/12/2023, Additional history exists DIABETES-SERUM CREATININE 06/13/20252024, 12/14/2023, 06/12/2023, Additional history exists MEDICARE AWV 12 MONTHS 06/13/2025 06/13/2024, 06/12/2023, 06/09/2022, Additional history exists DIABETES RETINOPATHY SCREENING 06/21/2025 06/22/2023, 05/01/2022 (Done Outside Per Report) COLONOSCOPY - COLON CA SCREENING 04/14/2029 04/14/2019 (Done Outside Per Report) Colorectal Cancer Screening 04/14/2029 DTAP/TDAP/TD VACCINES (3 - Td or Tdap) 06/21/2031 06/20/2021, 04/15/2017 PNEUMOCOCCAL VACCINE 50+ Completed 04/22/2019, 11/28 DEPRESSION SCREENING Completed 06/13/2024, 04/21/2023, 06/09/2022, Additional history exists HEPATITIS B VACCINE Aged Out No longe r eligible based on patient's age to complete this topic HIB VACCINE Aged Out No longer eligi ble based on patient's age to complete this topic HPV VACCINE Aged Out No longer eligi ble based on patient's age to complete this topic MENINGOCOCCAL (Group B) VACCINE SHARED DECISION-MAKING Aged Out No longer eligible based on patient's age to complete this topic MENINGOCOCCAL GROUPS A/C/Y/W VACCINE Aged Out No longer eligible based on patient's age to complete this topic Procedures Procedure Name Priority Date/Time Associated Diagnosis Comments XR HAND RIGHT 3VW OR MORE Routine 07/06/2024 10:58 AM CDT Right hand pain PROSTATE SPECIFIC ANTIGEN SCREEN Routine 06/13/2024 8:02 AM CDT Prostate cancer screening MICROALB/CREAT RATIO URINE RANDOM PANEL Routine 06/13/2024 8:02 AM CDT Type 2 diabetes mellitus without complication, without long-term current use of insulin LIPID PROFILE Routine 06/13/2024 8:02 AM CDT Type 2 diabetes mellitus without complication, without long-term current use of insulin Essential hypertension CBC W AUTO DIFFERENTIAL Routine 06/13/2024 8:02 AM CDT Essential hypertension COMPREHENSIVE METABOLIC PANEL Routine 06/13/2024 8:02 AM CDT Type 2 diabetes mellitus without complication, without long-term current use of insulin Essential hypertension HEMOGLOBIN A1C Routine 06/13/2024 8:02 AM CDT Type 2 diabetes mellitus without complication, without long-term current use of insulin EYE EXAM 06/22/2023 from Last 3 Months or Most Recently Relevant to Health Maintenance Results * XR Hand Right 3Vw or More (07/06/2024 10:58 AM CDT) Anatomical Region Laterality Modality Wrist / Hand Radiographic Shyanne ging 07/07/2024 5:31 PM CDT Narrative 07/07/2024 5:38 PM CDT EXAM: XR HAND RIGHT 3VW OR MORE INDICATION: M79.641: Pain in right hand COMPARISON: None FINDINGS: Findings suggestive of a lunate dislocation with the capitate articulating with the radius. Radiocarpal joint space narrowing with radial erosions. Degenerative changes of the distal radioulnar joint with distal ulna intraosseous cyst. Metacarpophalangeal joint space narrowing with hooked osteophytes, most advanced within the second and third MCP joints. Scattered interphalangeal joint osteoarthritis. Nonspecific soft tissue swelling underlying the radial wrist skin marker. Findings concerning for underlying inflammatory arthropathy such as rheumatoid arthritis. > Interpreting Provider: Yosvany Tran MD on 07/07/2024 5:38 PM Procedure Note Yosvany Tran MD - 07/07/2024 EXAM: XR HAND RIGHT 3VW OR MORE INDICATION: M79.641: Pain in right hand COMPARISON: None FINDINGS: Findings suggestive of a lunate dislocation with the capitatearticulating with the radius. Radiocarpal joint space narrowing with radial erosions. Degenerative changes of the distal radioulnar joint with distal ulna intraosseous cyst. Metacarpophalangeal joint space narrowing with hooked osteophytes, most advanced within the second and third MCP joints. Scattered interphalangeal joint osteoarthritis. Nonspecific soft tissue swelling underlying the radial wrist skin marker. Findings concerningfor underlying inflammatory arthropathy such as rheumatoid arthritis. > Interpreting Provider: Yosvany Tran MD on 07/07/2024 5:38 PM Nayan Llanes MD DIAGNOSTIC IMAGING ORDERA BLES Final Result * MICROALB/CREAT RATIO URINE RANDOM PANEL (06/13/2024 8:02 AM CDT) Creatinine Urine 56 20 - 320 mg/dL [facility] Microalbumin Urine 0.3 mg/dL [facility] Comment: Reference Range Not established Microalbumin/Creat inine Ratio 5 <30 mg/g creat [facility] Comment: The ADA defines abnormalities in albumin excretion as follows: Albuminuria Category Result (mg/g creatinine) Normal to Mildly increased <30 Moderately increased 30-299 Severely increased > OR = 300 The ADA recommends that at least two of three specimens collected within a 3-6 month period be abnormal before considering a patient to be within a diagnostic category. Test Performed at: [facility] [id number] [place] [address] MARYAN HOOVER MD Urine URINE SPECIMEN OBTAINED BY CLEAN CATCH PROCEDURE / Unknown 06/13/2024 8:02 AM CDT 06/13/2024 8:02 AM CDT Guero Wei DO LAB - URINE CHEMISTRY ORDERABL ES Final Result [facility] [address] [place] [address] * (ABNORMAL) HEMOGLOBIN A1C (06/13/2024 8:02 AM CDT) Hemoglobin A1c 6.2(H) <5.7 % of total Hgb [facility] Comment: For someone without known diabetes, a hemoglobin A1c value between 5.7% and 6.4% is consistent with prediabetes and should be confirmed with a follow-up test. For someone with known diabetes, a value <7% indicates that their diabetes is well controlled. A1c targets should be individualized based on duration of diabetes, age, comorbid conditions, and other considerations. This assay result is consistent with an increased risk of diabetes. Currently, no consensus exists regarding use of hemoglobin A1c for diagnosis of diabetes for children. REPORT COMMENT: FASTING:YES Test Performed at: [facility] [address] MARYAN HOOVER MD Blood BLOOD SPECIMEN / Unknown 06/13/2024 8:02 AM CDT 06/13/2024 8:02 AM CDT us Guero Wei DO LAB - CHEMISTRY ORDERABLES Fin al Result [address] [address] * (ABNORMAL) CBC WITH DIFFERENTIAL (06/13/2024 8:02 AM CDT) White Blood Cell Count 6.9 3.8 - 10.8 Thousand/ uL [facility] RBC 4.20 4.20 - 5.80 Million/u L [facility] Hemoglobin 13.1(L) 13.2 - 17.1 g/dL [facility] Hematocrit 39.5 38.5 - 50.0 % [facility] MCV 94.0 80.0 - 100.0 fL [facility] MCH 31.2 27.0 - 33.0 pg [facility] MCHC 33.2 32.0 - 36.0 g/dL [facility] Comment: For adults, a slight decrease in the calculated MCHC value (in the range of 30 to 32 g/dL) is most likely not clinically significant; however, it should be interpreted with caution in correlation with other red cell parameters and the patient's clinical condition. RDW 13.1 11.0 - 15.0 % [facility] Platelet Count 256 140 - 400 Thousand/ uL [facility] MPV 9.8 7.5 - 12.5 fL [facility] Neutrophil Absolute 5058 1500 - 7800 cells/uL [facility] Absolute Bands [facility] Metamyelocytes Absolute [facility] Myelocytes Absolute [facility] Absolute Prolymphocytes [facility] Lymphocytes Absolute 1097 850 - 3900 cells/uL [facility] Absolute Monocytes 490 200 - 950 cells/uL [facility] Eosinophils Absolute 228 15 - 500 cells/uL [facility] Basophils Absolute 28 0 - 200 cells/uL [facility] Absolute Blasts [facility] nRBC Absolute [facility] Granulocytes % 73.3 % [facility] Band Neutrophil [facility] Metamyelocytes [facility] Myelocytes [facility] Promyelocytes [facility] Lymphocytes % 15.9 % [facility] Lymphocyte Reactive [facility] Monocytes % 7.1 % [facility] Eosinophils % 3.3 % [facility] Basophils % 0.4 % [facility] Comment: Test Performed at: [facility] [id number] [place] [address] MARYAN HOOVER MD Blasts [facility] nRBC [facility] Comments [facility] Comment: Test Performed at: [facility] [address] [address] MARYAN HOOVER MD Blood BLOOD SPECIMEN / Unknown 06/13/2024 8:02 AM CDT 06/13/2024 8:02 AM CDT us Guero Wei DO LAB - HEMATOLOGY ORDERABLES Fi nal Result [facility] [address] [place] [address] * (ABNORMAL) COMPREHENSIVE METABOLIC PANEL (06/13/2024 8:02 AM CDT) Glucose 115(H) 65 - 99 mg/dL [facility] Comment: Fasting reference interval For someone without known diabetes, a glucose value between 100 and 125 mg/dL is consistent with prediabetes and should be confirmed with a follow-up test. BUN 17 7 - 25 mg/dL [facility] Creatinine 1.19 0.70 - 1.28 mg/dL [facility] eGFR by Cystatin C 64 > OR = 60 mL/min/1. 73m2 [facility] BUN/Creatinine Ratio SEE NOTE: 6 - 22 (calc) [facility] Comment: Not Reported: BUN and Creatinine are within reference range. Sodium 140 135 - 146 mmol/L [facility] Potassium 4.1 3.5 - 5.3 mmol/L [facility] Chloride 102 98 - 110 mmol/L [facility] CO2 29 20 - 32 mmol/L [facility] Calcium 9.4 8.6 - 10.3 mg/dL [facility] Protein Total 6.9 6.1 - 8.1 g/dL [facility] Albumin 4.4 3.6 - 5.1 g/dL [facility] Globulin Total 2.5 1.9 - 3.7 g/dL (calc) [facility] Albumin/Globulin Ratio 1.8 1.0 - 2.5 (calc) [facility] Bilirubin Total 0.5 0.2 - 1.2 mg/dL [facility] Alkaline Phosphatase 94 35 - 144 U/L [facility] AST 15 10 - 35 U/L [facility] ALT 12 9 - 46 U/L [facility] Comment: Test Performed at: [facility] [id number] [facility] [place] [address] MARYAN HOOVER MD Blood BLOOD SPECIMEN / Unknown 06/13/2024 8:02 AM CDT 06/13/2024 8:02 AM CDT Guero Saco DO LAB - CHEMISTRY ORDERABLES Fin al Result Performing Organization Address [facility] [place] [address] * PROSTATE SPECIFIC ANTIGEN SCREEN (06/13/2024 8:02 AM CDT) PSA 0.88 < OR = 4.00 ng/mL [facility] Comment: The total PSA value from this assay system is standardized against the WHO standard. The test result will be approximately 20% lower when compared to the equimolar-standardized total PSA (Courtney Concha). Comparison of serial PSA results should be interpreted with this fact in mind. This test was performed using the Siemens chemiluminescent method. Values obtained from different assay methods cannot be used interchangeably. PSA levels, regardless of value, should not be interpreted as absolute evidence of the presence or absence of disease. Test Performed at: [facility] [place] [address] MARYAN HOOVER MD Blood BLOOD SPECIMEN / Unknown 06/13/2024 8:02 AM CDT 06/13/2024 8:02 AM CDT Guero Saco DO LAB - CHEMISTRY ORDERABLES Fin al Result Performing Organization Address [facility] de Phone Number [facility] [address] [place] [address] * LIPID PROFILE (06/13/2024 8:02 AM CDT) Cholesterol 125 <200 mg/dL [facility] HDL Cholesterol 56 > OR = 40 mg/dL [facility] Triglycerides 79 <150 mg/dL [facility] LDL Calculated 53 mg/dL (calc) [facility] Comment: Reference range: <100 Desirable range <100 mg/dL for primary prevention; <70 mg/dL for patients with CHD or diabetic patients with > or = 2 CHD risk factors. LDL-C is now calculated using the Johnathan calculation, which is a validated novel method providing better accuracy than the Friedewald equation in the estimation of LDL-C. Tono VERA et al. JUAN. 2013;310(19): 5585-0062 (http://education.[employer].[place] Command/faq/AMC770) CHOL/HDLC RATIO 2.2 <5.0 (calc) [facility] Non HDL Cholesterol 69 <130 mg/dL (calc) [facility] Comment: For patients with diabetes plus 1 major ASCVD risk factor, treating to a non-HDL-C goal of <100 mg/dL (LDL-C of <70 mg/dL) is considered a therapeutic option. Test Performed at: [facility] [id number] [facility] [place] [address] MARYAN HOOVER MD Blood BLOOD SPECIMEN / Unknown 06/13/2024 8:02 AM CDT 06/13/2024 8:02 AM CDT Guero Wei DO LAB - CHEMISTRY ORDERABLES Fin al Result Performing Organization Address City/State/[facility] [place] [facility] Co de Phone Number [facility] [address] [place] [address] * EYE EXAM (06/22/2023) Anatomical Region Laterality Modality Other 06/22/2023 Narrative 06/22/2023 Ordered by an unspecified provider. us Scanned Document SCANNING ONLY Final Result from Last 3 Months or Most Recently Relevant to Health Maintenance Insurance MEDICARE MEDICARE SUPPLEMENT PAYOR GENERIC Care Teams Jacquard Loom Weaver Relationship Specialty Start Date End Date Guero Wei DO [address] [address] PCP - General Family Medicine 06/12/21 Guero Wei DO [address] [address] PCP - Attributed-MSSP 06/29/23
[2024-07-17 18:31] VITALS: BP 197/83; PULSE 84; RESP 20; TEMP 36.4; O2SAT 95
--- NOTE | 2024-07-17 18:32 | ED_ITS ---
HPI - Extremity Problem General Chief complaint: Extremity Problem,Nontraumatic Stated complaint: L wrist pain Time Seen by Provider: 07/17/24 17:33 Source: patient Mode of arrival: ambulatory Limitations: no limitations History of Present Illness HPI Narrative: This is a 74 year old male that presents to the ER for left wrist pain. Ongoing since awakening this morning. Reports associated swelling and tingling in his hand. Reports history of rheumatoid arthritis. Denies fevers. Related Data Allergies Allergy/AdvReac Type Severity Reaction Status Date / Time No Known Allergies Allergy Verified 07/17/24 17:19 Review of Systems 2 Review of Systems: CONSTITUTIONAL: Denies fever SKIN: Denies rash MUSCULOSKELETAL: Reports joint pain, and myalgia. NEUROLOGIC: Denies numbness, or weakness. All systems reviewed & are unremarkable except as noted in HPI and below PMFSH Past Medical History Medical History (Updated 07/17/24 @ 21:48 by Keesha Dupont PA-C) History of rheumatoid arthritis Social History Social History (Updated 07/17/24 @ 18:34 by Keesha Dupont PA-C) Substance use: never Exam 2 Narrative: GENERAL: Well-appearing, well-nourished, and in no acute distress. HEAD: Normocephalic, atraumatic. EYES: EOMI. CHEST: No respiratory distress. HEART: Regular rate EXTREMITIES: Markedly decreased active range of motion in the left wrist with edema of the wrist and into the hand. Warmth noted about the wrist. No erythema. Normal radial pulse SKIN: Warm, dry, no rash. NEURO: No focal deficits. Alert and oriented x3. PSYCH: Normal mood and affect Course Course Emergency Course: Patient and family updated on workup and need for admission Consultations Consultation #1: Spoke with Dr. Porter who will consult Date: 07/17/24 Consultation #2: Spoke with hospitalist about patient and workup accepts admission Vital Signs Vital signs: Vital Signs Temperature 97.6 F 07/17/24 18:31 Pulse Rate 84 07/17/24 18:31 Respiratory Rate 20 07/17/24 18:31 Blood Pressure 197/83 H 07/17/24 18:31 Pulse Oximetry 95 07/17/24 18:31 Temperature 97.6 F 07/17/24 18:31 Pulse Rate 84 07/17/24 19:19 Respiratory Rate 15 07/17/24 19:19 Blood Pressure 154/74 H 07/17/24 19:19 Pulse Oximetry 97 07/17/24 19:19 Procedures Joint Aspiration/Injection Joint Asp./Inject. 1: Joint Aspiration Date: 07/17/24 Side of body: left Joint Aspirated: wrist/hand Skin Prep: Chlorhexidine Local Anesthetic: lidocaine 1% Amount of anesthesia used (mL): 2 Needle Size Used: 20G Fluid Obtained: none Patient Tolerated Procedure: well Complications: none MDM - Extremity (Nontraumatic) MDM Narrative Medical decision making narrative: Patient presents to the emergency department for left wrist pain and swelling since awakening this morning. He is afebrile and nontoxic appearing. Hypertensive upon arrival, this down trended with management of his pain. CBC with leukocytosis to 12.5. Inflammatory markers are not elevated. Uric acid is elevated 8.7. Left wrist x-ray is without acute osseous abnormalities. Shows severe degenerative changes. Marked wrist soft tissue swelling. We did attempt joint aspiration in the ER, but did not get any fluid. Patient likely has a gout flare, but cannot rule out a septic joint. Will admit for further management with IV antibiotics and consult with Orthopedics Differential Diagnosis Differential diagnosis: Likely gout, cellulitis and other (Septic arthritis) Lab Data Attestation: I reviewed the patient's lab results. 07/17/24 18:45 07/17/24 18:45 Labs: Lab Results 07/17/24 Range/Units 18:45 WBC 12.5 H (4.5-10.0) K/mm3 RBC 4.35 L (4.6-6.20) M/mm3 Hgb 13.2 L (14.0-18.0) g/dL Hct 40.4 L (42.0-52.0) % MCV 92.9 (80-100) fl MCH 30.3 (26-34) pg MCHC 32.7 (32-36) g/dl RDW 13.6 (11.5-14.5) % Plt Count 249 (150-375) k/mm3 MPV 9.4 (7.4-10.4) fl Immature Gran % (Auto) 0.4 (0-0.5) % Neut % (Auto) 85.3 H (45.5-73.1) % Lymph % (Auto) 6.5 L (18.3-44.2) % Twiggs % (Auto) 6.6 (2.6-8.5) % Eos % (Auto) 1.0 (0-4.4) % Baso % (Auto) 0.2 (0.2-1.2) % Lymph # (Auto) 0.81 L (0.9-3.2) K/mm3 Twiggs # (Auto) 0.8 H (0.1-0.6) K/mm3 Eos # (Auto) 0.1 (0-0.3) K/mm3 Baso # (Auto) 0.0 (0.0-0.1) K/mm3 Abs Immat Gran (auto) 0.05 H (0.00-0.031) K/mm3 Absolute Neuts (auto) 10.7 H (1.3-6.7) K/mm3 Absolute Nucleated RBC 0.000 (0.0-0.012) K/mm3 Nucleated RBC % 0.0 (0.0-0.2) % ESR 13 (0-20) mm/hr PT 12.4 (11.1-14.7) Seconds INR 0.9 APTT 27.6 (22.3-36.8) Seconds Sodium 140 (137-145) mmol/L Potassium 3.9 (3.4-5.0) mmol/L Chloride 101 (98-107) mmol/L Carbon Dioxide 26 (22-30) mmol/L Anion Gap 13 H (4-12) mmol/L BUN 27 H (9-20) mg/dL Creatinine 1.49 H (0.7-1.3) mg/dL Estim Creat Clear Calc 37 ml/min Estimated GFR 46 L (59 - ) Glucose 176 H (65-110) mg/dL Uric Acid 8.7 H (3.5-8.5) mg/dL Calcium 9.6 (8.4-10.2) mg/dL Total Bilirubin 0.4 (0.2-1.3) mg/dL AST 23 (17-59) U/L ALT 20 (6-50) U/L Alkaline Phosphatase 107 (38-126) U/L C-Reactive Protein < 0.5 (<1.0) mg/dL Total Protein 8.0 (6.3-8.2) g/dL Albumin 4.8 (3.5-5.1) g/dL Imaging Data Radiologist's impression: ITS Impressions Wrist X-Ray 07/17/24 18:48 IMPRESSION: No acute osseous finding the left wrist. 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 Marked wrist soft tissue swelling. Radiopaque foreign body adjacent to the interphalangeal joint of the thumb. Critical Care Time Critical Care Time Critical Care Time: No Discharge Plan Discharge Clinical Impression: Arthralgia of left wrist Patient Disposition: Still a Patient Condition: Stable
[2024-07-17] MEDS: INDOMETHACIN 25 MG CAPSULE 50 MG PO (18:39)
[2024-07-17] MEDS: ACETAMINOPHEN 325 MG TABLET 650 MG PO (18:39)
--- NOTE | 2024-07-17 18:46 | PC.NURSE ---
pt says he wanted the hydrocodone pill that was prescribed for him. this RN scanned the medication and was about to administer when pt changed his mind and refused. this RN did a full undo in the MAR and wasted the medication in the Pyxis with another RN
[2024-07-17 18:56] LABS: Basophils Percent Auto 0.2 % (0.2-1.2); Eosinophils Absolute Auto 0.1 K/mm3 (0-0.3); Hematocrit 40.4 % (42.0-52.0); Hemoglobin 13.2 g/dL (14.0-18.0); Immature Granulocyte Absolute 0.05 K/mm3 (0.00-0.031); Immature Granulocyte Percent A 0.4 % (0-0.5); Lymphocytes Absolute Auto 0.81 K/mm3 (0.9-3.2); Lymphocytes Percent Auto 6.5 % (18.3-44.2); Mean Corpuscular HGB Conc 32.7 g/dl (32-36); Mean Corpuscular Hemoglobin 30.3 pg (26-34); Mean Corpuscular Volume 92.9 fl (80-100); Mean Platelet Volume 9.4 fl (7.4-10.4); Monocytes Absolute Auto 0.8 K/mm3 (0.1-0.6); Monocytes Percent Auto 6.6 % (2.6-8.5); Neutrophils Absolute Auto 10.7 K/mm3 (1.3-6.7); Neutrophils Percent Auto 85.3 % (45.5-73.1); Platelet Count Result 249 k/mm3 (150-375); Red Blood Count 4.35 M/mm3 (4.6-6.20); Red Cell Distribution Width 13.6 % (11.5-14.5); White Blood Count 12.5 K/mm3 (4.5-10.0)
[2024-07-17 19:07] LABS: INR 0.9; Prothrombin Time 12.4 Seconds (11.1-14.7)
[2024-07-17 19:08] LABS: Alanine Aminotransferase 20 U/L (6-50); Albumin Level 4.8 g/dL (3.5-5.1); Alkaline Phosphatase 107 U/L (38-126); Anion Gap 13 mmol/L (4-12); Aspartate Amino Transferase 23 U/L (17-59); Bilirubin,Total 0.4 mg/dL (0.2-1.3); Blood Urea Nitrogen 27 mg/dL (9-20); CRP < 0.5 mg/dL (<1.0); Calcium 9.6 mg/dL (8.4-10.2); Carbon Dioxide 26 mmol/L (22-30); Chloride 101 mmol/L (98-107); Estimated CRCL calculation 37 ml/min; Estimated Glomerular Filt Rate 46; Glucose 176 mg/dL (65-110); Partial Thromboplastin Time 27.6 Seconds (22.3-36.8); Potassium 3.9 mmol/L (3.4-5.0); Sodium 140 mmol/L (137-145); Uric Acid 8.7 mg/dL (3.5-8.5)
[2024-07-17 19:19] VITALS: BP 154/74; PULSE 84; RESP 15; O2SAT 97
[2024-07-17 19:25] LABS: Erythrocyte Sedimentation Rate 13 mm/hr (0-20)
[2024-07-17] MEDS: ceFAZolin 1 GM/NS 50 ML 1 GM/50 ML BAG IVPB (20:49)
[2024-07-17 21:10] LABS: Glucose Point of Care 216 mg/dl (65-105)
[2024-07-17 21:50] VITALS: BP 163/86; PULSE 85; RESP 18; TEMP 36.4; O2SAT 98
[2024-07-17 22:11] VITALS: BMI 27.9
--- NOTE | 2024-07-17 22:12 | ADMGEN ---
This patient, Garrison Jeffery, was admitted to 3 [facility] S[facility] Room 317-02. Patient/family oriented to hospital policies and general routines including ID bracelet, bed and alarms, visiting hours, pain management, procedures, bathroom and other care routines, personal items, smoking policy, room service/diet, and visiting hours. Information on how to activate the Rapid Response Team has been discussed. Patient/Family are encouraged to report perceived risks to care and to ask questions if they do not understand what they are told or what they should do.
[2024-07-18] MEDS: ACETAMINOPHEN 325 MG TABLET 650 MG PO ×3 (01:03→08:55)
[2024-07-18] MEDS: ceFAZolin 1 GM/NS 50 ML 1 GM/50 ML BAG IVPB ×2 (05:04→12:23)
--- NOTE | 2024-07-18 05:33 | P.HP_ITS ---
H&P: HPI History of Present Illness Date/Time: 07/18/24 05:33 Chief Complaint: Left wrist pain Narrative: 74-year-old male presents on 07/17/2024 with complaint of left wrist pain since waking up in the morning. He also has associated swelling and tingling in his he in. Reports a history of rheumatoid arthritis although does not take specific medications to treat that. He denies any traumatic events, fevers or chills, ulcers. Review of Systems Review of Systems: All systems reviewed & are unremarkable except as noted in HPI and below (HPI) [facility] Past Medical History Medical History (Updated 07/17/24 @ 21:48 by Keesha Dupont PA-C) History of rheumatoid arthritis Social History Social History (Updated 07/17/24 @ 18:34 by Keesha Dupont PA-C) Smoking status: Never smoker Second hand tobacco smoke exposure: No Alcohol intake: current Drinks per week: 10 Substance use: never Substance use type: does not use Do You Feel Safe in your Home?: Yes Lack of Transportation: No Lack of Food: Never True Current Housing: I Have Housing Concerned About Future Housing: No Difficulty Paying Gas/Electric Bills: No Difficulty Paying for Meds: No Currently Unemployed: No Education: High School Diploma/GED Difficulty w/ Childcare or Family Care: No Spiritual care concerns: No Meds Home Medications and Allergies Home Medications ?Medication ?Instructions ?Recorded ?Confirmed ?Type amlodipine 2.5 mg tablet 2.5 mg PO DAILY 07/17/24 07/17/24 History aspirin 81 mg tablet,delayed 81 mg PO DAILY 07/17/24 07/17/24 History release (Jonnathan Low Dose Aspirin) atorvastatin 20 mg tablet 20 mg PO HS 07/17/24 07/17/24 History hydrochlorothiazide 25 mg tablet 25 mg PO DAILY 07/17/24 07/17/24 History metformin 500 mg tablet 500 mg PO BID 07/17/24 07/17/24 History multivitamin (Daily Multi-Vitamin 1 tablet PO DAILY 07/17/24 07/17/24 History tablet) Allergies Allergy/AdvReac Type Severity Reaction Status Date / Time No Known Allergies Allergy Verified 07/17/24 17:19 Vital Signs Vital Signs - 24 hr 07/17/24 18:31 07/17/24 19:19 07/17/24 21:50 Temperature 97.6 F 97.6 F Pulse Rate 84 84 85 Respiratory Rate 20 15 18 Blood Pressure 197/83 H 154/74 H 163/86 H Pulse Oximetry 95 97 98 Oxygen Delivery 07/17/24 21:50 Temperature Pulse Rate Respiratory Rate Blood Pressure Pulse Oximetry Oxygen Delivery Room Air Exam Const: General: comfortable and no acute distress Other: A&O x3 HENMT: Mouth: Yes moist mucous membranes Eyes: Pupils: Equal, round and reactive pupils present Neck: Neck: supple Resp: Effort & Inspection: normal respiratory effort Auscultation: clear to auscultation bilaterally Cardio: Rate: regular rate Rhythm: regular rhythm GI: GI Palp: Yes Soft to palpation and No Tenderness to palpation present (GI) Neuro: Motor exam (neuro): 5/5 motor strength present throughout Sensory Exam: normal sensation Extrem: Other: Neurovascularly intact left upper extremity. Edematous left risk. Warm to touch. Tender to deep palpation. Psych: Mental Status: mental status grossly normal Affect: normal affect H&P: Results Labs Labs: Short CBC 07/17/24 Range/Units 18:45 WBC 12.5 H (4.5-10.0) K/mm3 Hgb 13.2 L (14.0-18.0) g/dL Hct 40.4 L (42.0-52.0) % Plt Count 249 (150-375) k/mm3 BMP 07/17/24 18:45 Sodium 140 Potassium 3.9 Chloride 101 Carbon Dioxide 26 BUN 27 H Creatinine 1.49 H Glucose 176 H Calcium 9.6 Liver Function 07/17/24 Range/Units 18:45 Total Bilirubin 0.4 (0.2-1.3) mg/dL AST 23 (17-59) U/L ALT 20 (6-50) U/L Alkaline Phosphatase 107 (38-126) U/L Albumin 4.8 (3.5-5.1) g/dL Assessment and Plan Assessment and plan (1) Arthralgia of left wrist: Code(s): M25.532 - Pain in left wrist Status: Acute Plan Patient doing relatively well, only requesting acetaminophen. Left wrist x-ray three view demonstrates severe degenerative changes of the radiocarpal joint and proximal carpal row with soft tissue swelling. Joint aspiration attempted in the ER however unable to aspirate any fluid. ESR 13. Uric acid 8.7. Serum creatinine 1.49. Patient is unsure of any history of CKD. Check urinalysis. Administer normal saline infusion at 100 cc/hour and trend renal function. Received cefazolin and indomethacin. Orthopedic surgery consulted from ER, awaiting official consultation. At this time will hold [employer] aspirin and hydrochlorothiazide considering his p resentation. Accu-Cheks a.c. HS, hold [employer] metformin. Unclear the significance of leukocytosis. Will check procalcitonin. Patient is afebrile and his left wrist does not appear to be septic. SCDs. Full code. Hospitalist MIPS Advance Care Plan I have confirmed that the patient's Advanced Care Plan is present, code status is documented, or surrogate decision maker is listed in patient medical record.: Yes Medication Reconciliation I have utilized all available resources to obtain, update and review the patients current medications (includes all prescriptions, OTC, herbals, cannabis, and nutritional supplements).: Yes
[2024-07-18 06:00] VITALS: BP 169/96; PULSE 74; RESP 16; TEMP 36.4; O2SAT 96
[2024-07-18 06:02] LABS: Basophils Percent Auto 0.4 % (0.2-1.2); Eosinophils Absolute Auto 0.1 K/mm3 (0-0.3); Eosinophils Percent Auto 1.4 % (0-4.4); Hematocrit 38.1 % (42.0-52.0); Hemoglobin 12.5 g/dL (14.0-18.0); Immature Granulocyte Absolute 0.03 K/mm3 (0.00-0.031); Immature Granulocyte Percent A 0.4 % (0-0.5); Lymphocytes Absolute Auto 1.19 K/mm3 (0.9-3.2); Lymphocytes Percent Auto 14.3 % (18.3-44.2); Mean Corpuscular HGB Conc 32.8 g/dl (32-36); Mean Corpuscular Hemoglobin 30.4 pg (26-34); Mean Corpuscular Volume 92.7 fl (80-100); Mean Platelet Volume 9.1 fl (7.4-10.4); Monocytes Absolute Auto 0.7 K/mm3 (0.1-0.6); Monocytes Percent Auto 8.3 % (2.6-8.5); Neutrophils Absolute Auto 6.3 K/mm3 (1.3-6.7); Neutrophils Percent Auto 75.2 % (45.5-73.1); Platelet Count Result 218 k/mm3 (150-375); Red Blood Count 4.11 M/mm3 (4.6-6.20); Red Cell Distribution Width 13.7 % (11.5-14.5); White Blood Count 8.3 K/mm3 (4.5-10.0)
[2024-07-18 06:14] LABS: Anion Gap 10 mmol/L (4-12); Blood Urea Nitrogen 23 mg/dL (9-20); Calcium 9.1 mg/dL (8.4-10.2); Carbon Dioxide 26 mmol/L (22-30); Chloride 103 mmol/L (98-107); Estimated CRCL calculation 51 ml/min; Estimated Glomerular Filt Rate > 60; Glucose 124 mg/dL (65-110); Potassium 3.4 mmol/L (3.4-5.0); Sodium 139 mmol/L (137-145)
[2024-07-18] MEDS: SODIUM CHLORIDE 0.9% IV 1,000 ML 100 ML IV CONT (06:31)
[2024-07-18 06:35] LABS: Procalcitonin 0.1 ng/mL
--- NOTE | 2024-07-18 06:51 | P.PNIM_ITS ---
Progress Note: A&P Assessment and Plan (1) Arthralgia of left wrist: Code(s): M25.532 - Pain in left wrist Status: Acute Assessment and Plan: History of rheumatoid arthritis Unsuccessful joint aspiration attempted in the ED - Leukocytosis on admission, started on cefazolin for possible infection/septic joint. Procal WNL and leukocytosis has since resolved - Uric acid elevated at 8.7, CRP WNL. Given indomethacin for possible gout flare. - Blood cultures obtained on 07/17: pending - Holding asa and hctz - Left wrist XR showed no acute osseous finding of the left wrist however severe degenerative changes of the radial carpal joint and proximal carpal row, marked wrist soft tissue swelling, and radiopaque foreign body adjacent to the interphalangeal joint of the thumb. - Orthopedics consulted (2) Acute kidney injury: Code(s): N17.9 - Acute kidney failure, unspecified Status: Acute Assessment and Plan: Patient is unsure of CKD history. BUN/Cr slightly elevated at 27/1.49 on admission, no prior labs to compare Given IV fluids and has since resolved Monitor I/O Avoid nephrotoxic medications Renally dose medications UA ordered Subjective Date/time seen: 07/18/24 06:51 Interval history: 74 year old male with past medical history of rheumatoid arthritis, diabetes, hypertension and hyperlipidemia presents to the hospital for left wrist pain. Review of Systems Review of Systems: All systems reviewed & are unremarkable except as noted in HPI and below Exam Narrative: AF General: well nourished, well-developed male in no acute respiratory distress who is nontoxic appearing, lying semi recumbent in bed. HEENT: Normocephalic. Atraumatic. Pupils equal round reactive to light. Extraocular movement intact. Sclera clear and anicteric. Nares patent. No oral lesions. Moist mucous membranes. Tongue is midline. Palate charlie symmetrically. No facial asymmetry. Neck: Neck was supple. No dominant adenopathy, thyromegaly or masses. 2+ carotid upstrokes without bruits. Chest: Lungs are clear to auscultation bilaterlly. No wheezes or crackles. CV: Heart was regular rate and rhythm. S1/S2. No murmurs, gallops, or rubs. Abd: Abdomen was soft. Nontender. Nondistended. Postive bowel sounds. No organomegaly or masses. Ext: No clubbing, cyanosis, or edema. 2+ DP pulses bilaterally. Neuro: Patient is alert and oriented x4. Strenth is 5/5 in both upper and lower extremities. Cranial nerves 2-12 are intact. Speech is clear. Psych: Normal nood and affect. Patient is pleasant and cooperative. Skin: Warm and dry. No rashes noted. Objective Data Vital Signs Vital Signs: Vital Signs - 24 hr 07/17/24 18:31 07/17/24 19:19 07/17/24 21:50 Temperature 97.6 F 97.6 F Pulse Rate 84 84 85 Respiratory Rate 20 15 18 Blood Pressure 197/83 H 154/74 H 163/86 H Pulse Oximetry 95 97 98 Oxygen Delivery 07/17/24 21:50 07/18/24 06:00 Temperature 97.6 F Pulse Rate 74 Respiratory Rate 16 Blood Pressure 169/96 H Pulse Oximetry 96 Oxygen Delivery Room Air Intake/Output Intake/Output: Intake & Output 07/15/24 07/16/24 07/17/24 07/18/24 23:59 23:59 23:59 23:59 Intake Total 50 50 Output Total 0 Balance 50 50 Meds/Results Medications: Active Medications Generic Name Dose Route Start Last Admin Trade Name Freq PRN Reason Stop Dose Admin Acetaminophen 650 mg 07/18/24 00:46 07/18/24 05:03 Acetaminophen 325 Mg Tablet PO 650 mg Q4H PRN Administration Mild Pain (1-3) or Fever Amlodipine Besylate 2.5 mg 07/18/24 09:00 Amlodipine Besylate 2.5 Mg Tablet PO DAILY [facility] Atorvastatin Calcium 20 mg 07/18/24 21:00 Atorvastatin 20 Mg Tablet PO HS [facility] Cefazolin Sodium 1 gm in 50 mls @ 100 mls/hr 07/18/24 05:00 07/18/24 05:34 Ancef 1 Gm/Ns 50 Ml IVPB Infused Q8H MINE Infusion Sodium Chloride 1,000 mls @ 100 mls/hr 07/18/24 05:20 07/18/24 06:31 Normal Saline Iv IV CONT 100 mls/hr .Q10H MINE Administration Multivitamins Therapeutic 1 tablet 07/18/24 09:00 Multivitamins Therapeutic Tab (*Bkc) PO DAILY [facility] Radiology Results: ITS Impressions Wrist X-Ray 07/17/24 18:48 IMPRESSION: No acute osseous finding the left wrist. 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 Marked wrist soft tissue swelling. Radiopaque foreign body adjacent to the interphalangeal joint of the thumb. Labs Labs: Laboratory Results - last 24 hr 07/17/24 07/17/24 07/18/24 18:45 21:08 05:52 WBC 12.5 H 8.3 RBC 4.35 L 4.11 L Hgb 13.2 L 12.5 L Hct 40.4 L 38.1 L MCV 92.9 92.7 MCH 30.3 30.4 MCHC 32.7 32.8 RDW 13.6 13.7 Plt Count 249 218 MPV 9.4 9.1 Immature Gran % (Auto) 0.4 0.4 Neut % (Auto) 85.3 H 75.2 H Lymph % (Auto) 6.5 L 14.3 L [place] % (Auto) 6.6 8.3 Eos % (Auto) 1.0 1.4 Baso % (Auto) 0.2 0.4 Lymph # (Auto) 0.81 L 1.19 [place] # (Auto) 0.8 H 0.7 H Eos # (Auto) 0.1 0.1 Baso # (Auto) 0.0 0.0 Abs Immat Gran (auto) 0.05 H 0.03 Absolute Neuts (auto) 10.7 H 6.3 Absolute Nucleated RBC 0.000 0.000 Nucleated RBC % 0.0 0.0 ESR 13 PT 12.4 INR 0.9 APTT 27.6 Sodium 140 139 Potassium 3.9 3.4 Chloride 101 103 Carbon Dioxide 26 26 Anion Gap 13 H 10 BUN 27 H 23 H Creatinine 1.49 H 1.05 Estim Creat Clear Calc 37 51 Estimated GFR 46 L > 60 Glucose 176 H 124 H POC Capillary Glucose 216 H Uric Acid 8.7 H Calcium 9.6 9.1 Magnesium 2.0 Total Bilirubin 0.4 AST 23 ALT 20 Alkaline Phosphatase 107 C-Reactive Protein < 0.5 Total Protein 8.0 Albumin 4.8 Procalcitonin 0.1
[2024-07-18 08:00] VITALS: PULSE 74; RESP 16; O2SAT 96
[2024-07-18 08:25] LABS: Glucose Point of Care 128 mg/dl (65-105)
[2024-07-18] MEDS: amLODIPine BESYLATE 2.5 MG TABLET PO (08:44)
[2024-07-18] MEDS: MULTIVITAMINS THERAPEUTIC TAB (*BKC) 1 TABLET PO (08:44)
[2024-07-18 09:55] LABS: Add Urine Microscopic? NO; Appearance Urine Clear (Clear); Bilirubin Urine Negative (Negative); Blood Urine Negative (Negative); Color Urine Yellow (Yellow); Glucose Urine UA Negative (Negative); Ketones Urine Negative (Negative); Leukocyte Esterase Ur Negative LEU/UL (Negative); Nitrate Urine Negative (Negative); Protein Urine Negative (Negative); Specific Grav Ur 1.017 (1.001-1.035); Urobilinogen Urine 0.2 mg/dL (<2.0); pH Urine 6.5 (5.0-9.0)
[2024-07-18 12:16] LABS: Glucose Point of Care 126 mg/dl (65-105)
--- NOTE | 2024-07-18 12:54 | P.CONOP_ITS ---
Assessment and Plan Assessment and plan (1) Arthralgia of left wrist: Code(s): M25.532 - Pain in left wrist Status: Acute Plan 76 yr old RHD Male with history of RA, Acute onset Left Wrist Pain and swelling Thursday morning. The day before, the patient reports more than normal consumption of alcohol in celebration with the family of Mar[place]. In addition, he reports eating fried chicken as well as more than typical amount of deserts. No history of Gout, he was primarily concerned about the possibility of cardiac etiology for the Let Hand and Wrist Pain. - xrays of Left Wrist consistent with RA, Soft tissue swelling, diffuse osteopenia, loss of joint space at radiocarpal joint. - very low probability of septic joint - recommend follow up with Dr Porter in 7-10 days. History of Present Illness HPI Consult date: 07/18/24 Requesting physician: Steph Cheatham PA-C Chief complaint: Left wrist pain Narrative: 76 yr old RHD Male with history of RA, Acute onset Left Wrist Pain and swelling Thursday morning. The day before, the patient reports more than normal consumption of alcohol in celebration with the family of Marifer. In addition, he reports eating fried chicken as well as more than typical amount of deserts. No history of Gout, he was primarily concerned about the possibility of cardiac etiology for the Let Hand and Wrist Pain. Review of Systems 2 Review of Systems: All systems reviewed & are unremarkable except as noted in HPI and below PMFSH Past Medical History Medical History History of rheumatoid arthritis Social History Social History Smoking status: Never smoker Second hand tobacco smoke exposure: No Alcohol intake: current Drinks per week: 10 Substance use: never Substance use type: does not use Do You Feel Safe in your Home?: Yes Lack of Transportation: No Lack of Food: Never True Current Housing: I Have Housing Concerned About Future Housing: No Difficulty Paying Gas/Electric Bills: No Difficulty Paying for Meds: No Currently Unemployed: No Education: High School Diploma/GED Difficulty w/ Childcare or Family Care: No Spiritual care concerns: No Meds Home Medications and Allergies Home Medications ?Medication ?Instructions ?Recorded ?Confirmed ?Type amlodipine 2.5 mg tablet 2.5 mg PO DAILY 07/17/24 07/17/24 History aspirin 81 mg tablet,delayed 81 mg PO DAILY 07/17/24 07/17/24 History release (Jonnathan Low Dose Aspirin) atorvastatin 20 mg tablet 20 mg PO HS 07/17/24 07/17/24 History hydrochlorothiazide 25 mg tablet 25 mg PO DAILY 07/17/24 07/17/24 History metformin 500 mg tablet 500 mg PO BID 07/17/24 07/17/24 History multivitamin (Daily Multi-Vitamin 1 tablet PO DAILY 07/17/24 07/17/24 History tablet) Allergies Allergy/AdvReac Type Severity Reaction Status Date / Time No Known Allergies Allergy Verified 07/17/24 17:19 Vital Signs Vital Signs - 24 hr 07/17/24 18:31 07/17/24 19:19 07/17/24 21:50 Temperature 36.4 C 36.4 C Pulse Rate 84 84 85 Respiratory Rate 20 15 18 Blood Pressure 197/83 H 154/74 H 163/86 H Pulse Oximetry 95 97 98 Oxygen Delivery 07/17/24 21:50 07/18/24 06:00 07/18/24 08:00 Temperature 36.4 C Pulse Rate 74 74 Respiratory Rate 16 16 Blood Pressure 169/96 H Pulse Oximetry 96 96 Oxygen Delivery Room Air Room Air Exam 2 Narrative: Patient sitting comfortably at bedside with . Much improved Left wrist pain since admission. Left Wrist with moderate swelling and decreased range of motion of radiocarpal, metacarpal, and interphalangeal joints. - no tenderness to palpation to Left Luz nd and Wrist. - Intact sensation to light touch, good capillary refill to all digits. - no warmth, no erythema Const: General: cooperative, healthy appearing, comfortable, no acute distress, alert and awake Nutritional Appearance: average body habitus O rientation/consciousness: oriented to person, oriented to place and oriented to time Limitations: no limitations Results Labs 07/18/24 05:52 07/18/24 05:52 Labs: Abnormal lab results 07/17/24 07/17/24 07/18/24 Range/Units 18:45 21:08 05:52 WBC 12.5 H (4.5-10.0) K/mm3 RBC 4.35 L 4.11 L (4.6-6.20) M/mm3 Hgb 13.2 L 12.5 L (14.0-18.0) g/dL Hct 40.4 L 38.1 L (42.0-52.0) % Neut % (Auto) 85.3 H 75.2 H (45.5-73.1) % Lymph % (Auto) 6.5 L 14.3 L (18.3-44.2) % Lymph # (Auto) 0.81 L (0.9-3.2) K/mm3 [place] # (Auto) 0.8 H 0.7 H (0.1-0.6) K/mm3 Abs Immat Gran (auto) 0.05 H (0.00-0.031) K/mm3 Absolute Neuts (auto) 10.7 H (1.3-6.7) K/mm3 Anion Gap 13 H (4-12) mmol/L BUN 27 H 23 H (9-20) mg/dL Creatinine 1.49 H (0.7-1.3) mg/dL Estimated GFR 46 L (59 - ) Glucose 176 H 124 H (65-110) mg/dL POC Capillary Glucose 216 H (65-105) mg/dl Uric Acid 8.7 H (3.5-8.5) mg/dL 07/18/24 07/18/24 Range/Units 07:55 12:13 WBC (4.5-10.0) K/mm3 RBC (4.6-6.20) M/mm3 Hgb (14.0-18.0) g/dL Hct (42.0-52.0) % Neut % (Auto) (45.5-73.1) % Lymph % (Auto) (18.3-44.2) % Lymph # (Auto) (0.9-3.2) K/mm3 [place] # (Auto) (0.1-0.6) K/mm3 Abs Immat Gran (auto) (0.00-0.031) K/mm3 Absolute Neuts (auto) (1.3-6.7) K/mm3 Anion Gap (4-12) mmol/L BUN (9-20) mg/dL Creatinine (0.7-1.3) mg/dL Estimated GFR (59 - ) Glucose (65-110) mg/dL POC Capillary Glucose 128 H 126 H (65-105) mg/dl Uric Acid (3.5-8.5) mg/dL H & H 07/17/24 07/18/24 Range/Units 18:45 05:52 Hgb 13.2 L 12.5 L (14.0-18.0) g/dL Hct 40.4 L 38.1 L (42.0-52.0) % Coagulation 07/17/24 Range/Units 18:45 INR 0.9 All other labs normal.
[2024-07-18 14:00] VITALS: BP 178/93; PULSE 98; RESP 20; TEMP 36.9; O2SAT 98
[2024-07-18 15:19] VITALS: BP 149/76
--- NOTE | 2024-07-18 15:26 | P.DS_ITS ---
DS: Admitting Diagnosis Discharge Date 07/18/2024 Admitting Diagnosis arthralgia of left wrist margaux DS: Discharge Diagnosis Discharge Diagnosis (1) Arthralgia of left wrist: Code(s): M25.532 - Pain in left wrist Status: Acute (2) Acute kidney injury: Code(s): N17.9 - Acute kidney failure, unspecified Status: Acute DS: Summary Hospital Course Reason for hospitalization: arthralgia of left wrist margaux Hospital Course: 74 year old male with past medical history of rheumatoid arthritis, diabetes, hypertension and hyperlipidemia presents to the hospital for left wrist pain. The day prior to admission patient had eaten more fried foods and drank more alcohol than his baseline consumption. He denies history of gout. Vitals stable and not meeting sepsis criteria on admission. Slightly elevated WBC on admission. Started on ancef for concern of septic joint in the ED. Unsuccessful joint aspiration performed in the ED. Uric acid elevated at 8.7, CRP WNL. Given indomethacin for possible gout flare. Leukocytosis resolved. Left wrist xr showed no acute osseous finding of the left wrist however severe degenerative changes of the radial carpal joint and proximal carpal row, marked wrist soft tissue swelling, and radiopaque foreign body adjacent to the interphalangeal joint of the thumb. Ortho consulted and state that findings are most consistent with RA flare as patient has noted soft tissue swelling, diffuse osteopenia, loss of joint space at radiocarpal joint. Possibly pseudogout and very low probability of septic joint. Prior to discharge spoke with ortho dr. porter who agrees that patient is a low risk of septic joint and does not need antibiotics at time of discharge. Patient is to follow up with dr. porter in the office in 7-10 days to reassess the joint. Patient states he is ready for discharge. He has no complaints denying chest pain, shortness of breath, palpitations, nausea/vomiting and abdominal pain. He states that the wrist has improved since admission and his pain is controlled. Patient discharged home with family in a stable condition. He is to follow up with his PCP in 1 week and orhto as scheduled. Status at Discharge Functional status at discharge: independent ambulation Time Spent with Patient Time attestation: Total time spent providing and/or coordinating discharge services: Time spent: Greater than 30 minutes Exam Narrative: AF HR 98 RR 20 SPO2 98 BP 149/76 General:male in no acute respiratory distress who is nontoxic appearing, sitting up on the side of the bed playing cards with family HEENT: Normocephalic. Atraumatic. Extraocular movement intact. Sclera clear and anicteric. Chest: Lungs are clear to auscultation bilaterally. CV: Heart was regular rate and rhythm. Abd: Abdomen was soft. Nontender. Nondistended. Positive bowel sounds. Extremities: swelling to left wrist with decreased range of motion, no pain with active/passive range of motion, no erythema or warmth. Sensation intact. Neuro: Patient is alert and oriented x4. Speech is DS: Data Data Completed and Pending Completed studies during hospitalization: wrist xr Labs on day of discharge: Labs from last 24 hours 07/18/24 07/18/24 07/18/24 12:13 09:48 07:55 WBC RBC Hgb Hct MCV MCH MCHC RDW Plt Count MPV Immature Gran % (Auto) Neut % (Auto) Lymph % (Auto) [place] % (Auto) Eos % (Auto) Baso % (Auto) Lymph # (Auto) [place] # (Auto) Eos # (Auto) Baso # (Auto) Abs Immat Gran (auto) Absolute Neuts (auto) Absolute Nucleated RBC Nucleated RBC % ESR PT INR APTT Sodium Potassium Chloride Carbon Dioxide Anion Gap BUN Creatinine Estim Creat Clear Calc Estimated GFR Glucose POC Capillary Glucose 126 H 128 H Uric Acid Calcium Magnesium Total Bilirubin AST ALT Alkaline Phosphatase C-Reactive Protein Total Protein Albumin Procalcitonin Urine Color Yellow Urine Appearance Clear Urine pH 6.5 Ur Specific [place] 1.017 Urine Protein Negative Urine Glucose (UA) Negative Urine Ketones Negative Ur Blood (Man) Negative Urine Nitrate Negative Urine Bilirubin Negative Urine Urobilinogen 0.2 Ur Leukocyte Esterase Negative 07/18/24 07/17/24 07/17/24 05:52 21:08 18:45 WBC 8.3 12.5 H RBC 4.11 L 4.35 L Hgb 12.5 L 13.2 L Hct 38.1 L 40.4 L MCV 92.7 92.9 MCH 30.4 30.3 MCHC 32.8 32.7 RDW 13.7 13.6 Plt Count 218 249 MPV 9.1 9.4 Immature Gran % (Auto) 0.4 0.4 Neut % (Auto) 75.2 H 85.3 H Lymph % (Auto) 14.3 L 6.5 L [place] % (Auto) 8.3 6.6 Eos % (Auto) 1.4 1.0 Baso % (Auto) 0.4 0.2 Lymph # (Auto) 1.19 0.81 L [place] # (Auto) 0.7 H 0.8 H Eos # (Auto) 0.1 0.1 Baso # (Auto) 0.0 0.0 Abs Immat Gran (auto) 0.03 0.05 H Absolute Neuts (auto) 6.3 10.7 H Absolute Nucleated RBC 0.000 0.000 Nucleated RBC % 0.0 0.0 ESR 13 PT 12.4 INR 0.9 APTT 27.6 Sodium 139 140 Potassium 3.4 3.9 Chloride 103 101 Carbon Dioxide 26 26 Anion Gap 10 13 H BUN 23 H 27 H Creatinine 1.05 1.49 H Estim Creat Clear Calc 51 37 Estimated GFR > 60 46 L Glucose 124 H 176 H POC Capillary Glucose 216 H Uric Acid 8.7 H Calcium 9.1 9.6 Magnesium 2.0 Total Bilirubin 0.4 AST 23 ALT 20 Alkaline Phosphatase 107 C-Reactive Protein < 0.5 Total Protein 8.0 Albumin 4.8 Procalcitonin 0.1 Urine Color Urine Appearance Urine pH Ur Specific [place] Urine Protein Urine Glucose (UA) Urine Ketones Ur Blood (Man) Urine Nitrate Urine Bilirubin Urine Urobilinogen Ur Leukocyte Esterase Discharge Plan Discharge Attending physician on discharge: Maria Antonia Hirsch Consulting providers: Derek Zimmerman; Yosi Porter Discharging Clinician: Steph Cheatham Anticipated Discharge Date/Time: 07/18/24 15:26 Patient Disposition: Home Activity: as tolerated Diet: as tolerated and heart healthy Discharge Instructions: Discharge disposition: Patient admitted to the hospital for arthralgia of the left wrist Evaluated by Orthopedics Likely rheumatoid arthritis flare Follow-up with Orthopedic Dr. Porter in 7-10 days to reassess Monitor and record blood pressures for primary care follow up Take caution while standing, rising, or moving Change positions slowly taking a break between each position change If you standing feel dizzy sit back down and take a break Encouraged to continue with yearly vaccinations Return to the emergency department if he developed sudden shortness of breath, chest pain, nausea, vomiting, upset stomach or intractable diarrhea Return to the emergency department if you develop fever greater than 101.5 Follow-up with the primary care physician within 1-2 weeks Thank you for choosing [facility] for your healthcare needs Patient Instructions: Aspirin (By mouth), Rheumatoid Arthritis (DC) Patient Language: French Stand Alone Forms: General Discharge Information Follow-up/Referrals: Derek Zimmerman MD [Physician] - 1 Week Yosi Porter MD [Physician] - 1 Week Discharge Medications: Continued amlodipine 2.5 mg tablet 2.5 mg PO DAILY metformin 500 mg tablet 500 mg PO BID atorvastatin 20 mg tablet 20 mg PO HS hydrochlorothiazide 25 mg tablet 25 mg PO DAILY multivitamin [Daily Multi-Vitamin] Tablet 1 tablet PO DAILY aspirin [Jonnathan Low Dose Aspirin] 81 mg tablet,delayed release (DR/EC) 81 mg PO DAILY Date of admission: 07/17/24 20:44 Primary Care Provider: UNKNOWN,DOCTOR Admitting Provider: Ronel Huggins Attending physician on admission: Steph Cheatham Condition: Stable Hospitalist MIPS Heart Failure (Exclusion) Patient has history of Heart Transplant or Left Ventricular Assistive Device?: No IF YES, STOP HERE Heart Failure (Qualifier) Patient has current or prior documentation of LVEF less than or equal to 40%, or mod/servere depressed LVSF?: No IF NO, STOP HERE
== END 2024-07-18 16:10 | disposition home or self-care (01) ==
LOC: ANHED 17:58 → ANH3MEDSUR 21:48
PROVIDERS: Admitting Provider General Practice; Emergency Provider Physician Assistant; Visit Provider Student in an Organized Health Care Education/Training Program
DX: M25.532 Pain in left wrist (principal); N17.9 Acute kidney failure, unspecified; M06.9 Rheumatoid arthritis, unspecified; E11.9 Type 2 diabetes mellitus without complications; I10 Essential (primary) hypertension; E78.5 Hyperlipidemia, unspecified; Z79.82 Long term (current) use of aspirin; Z79.899 Other long term (current) drug therapy
CPT/HCPCS: 20600; 20605; 36415; 73110; 80048; 80053; 81003; 82948; 83735; 84145; 84550; 85025; 85610; 85652; 85730; 86140; 87040; 96365; 96376; 99285; A9270; G0378; J0690; J7030